=== PATIENT | female | born 1960 | race Caucasian/White ===

== ENCOUNTER → 2022-06-28 07:58 | Outpatient (CLI) | payer MEDICARE, MEDICAID, SELFPAY ==
--- NOTE | ~2022-06-28 | XR_ITS ---
XR ankle RT min 3V DATE: 06/28/2022 08:27 INDICATION: Anterior and medial ankle pain. No injury. TECHNIQUE: 4 views COMPARISON: None FINDINGS: No fracture or dislocation of the ankle or disruption of the ankle mortise. No periosteal r eaction or bone destruction. IMPRESSION: No significant abnormality Reviewed, dictated and finalized at location B. SS DIRECTOR IMPRESSION: No significant abnormality
== END ==
DX: M25.571 Pain in right ankle and joints of right foot (principal)
CPT/HCPCS: 73610